=== PATIENT | male | born 1990 | race African-American/Black ===

== ENCOUNTER 2017-11-17 10:25 | Emergency (ER) | payer OTHER ==
[~2017-11-17] VITALS: Ht 172.7 cm; Wt 68.0 kg
[~2017-11-17 10:25] MED LIST: BACTRIM DS TAB1 EACH PO; BENADRYL25 MG PO; IBUPROFEN400 MG PO; IBUPROFEN800 MG PO; KEFLEX500 MG PO; PREDNISONE20 MG PO; SUDAFED PO; TRAMADOL HCL50 MG PO; ULTRAM50 MG PO; VICODIN 5-5001 EACH PO
[2017-11-17] MEDS ORDERED: NAPROSYN500 MG PO (12:20)
== END 2017-11-17 12:32 | disposition home or self-care (01) ==
LOC: ED 10:25
DX: R10.11 Right upper quadrant pain (principal); F17.200 Nicotine dependence, unspecified, uncomplicated
CPT/HCPCS: 76705; 80053; 81001; 83690; 85025; 96374; 96375; 99284; J1885; J2405; J7030

== ENCOUNTER 2017-11-24 09:55 | Emergency (ER) | payer OTHER ==
[~2017-11-24] VITALS: Ht 172.7 cm; Wt 68.0 kg
[~2017-11-24 09:55] MED LIST changes: +NAPROSYN500 MG PO
== END 2017-11-24 12:15 | disposition short-term general hospital (02) ==
LOC: ED 09:55
DX: I62.9 Nontraumatic intracranial hemorrhage, unspecified (principal); F17.200 Nicotine dependence, unspecified, uncomplicated
CPT/HCPCS: 70450; 80053; 85025; 85610; 85730; 96374; 96375; 99291; J1170; J2405; J3010

== ENCOUNTER 2020-07-21 16:35 | Emergency (ER) | payer OTHER ==
[~2020-07-21] VITALS: Ht 172.7 cm; Wt 63.5 kg
[2020-07-21] MEDS ORDERED: KEFLEX500 MG PO (17:41)
== END 2020-07-21 17:51 | disposition home or self-care (01) ==
LOC: ED 16:35
DX: M65.88 Other synovitis and tenosynovitis, other site (principal); F17.200 Nicotine dependence, unspecified, uncomplicated
CPT/HCPCS: 99283

== ENCOUNTER 2021-06-14 17:34 | Emergency (ER) | payer OTHER ==
[~2021-06-14] VITALS: Ht 172.7 cm; Wt 63.5 kg
--- NOTE | 2021-06-14 19:19 | EKG ---
[facility] [address] [facility] [place], [place] [address] Signed Normal sinus rhythm Normal ECG No previous ECGs available Confirmed by EMERY LEE DO ([id number]) on 06/14/2021 7:19:27 PM Electronically Signed By: EMERY LEE DO 06/14/211918 PATIENT NAME: MURRAY WALKER Electrocardiogram DATE OF : 86 PHYSICIAN: EMERY LEE DO REPORT #: [id number] REPORT IS CONFIDENTIAL AND NOT TO BE RELEASED WITHOUT AUTHORIZATION
[2021-06-14] MEDS ORDERED: NASAL DECONGEST30 MG PO (19:28)
[2021-06-14] MEDS ORDERED: MECLIZINE HCL25 MG PO (19:28)
== END 2021-06-14 20:06 | disposition home or self-care (01) ==
LOC: ED 17:34
DX: H83.02 Labyrinthitis, left ear (principal); R07.89 Other chest pain; F17.200 Nicotine dependence, unspecified, uncomplicated; Z86.73 Personal history of transient ischemic attack (TIA), and cerebral infarction without residual deficits
CPT/HCPCS: 70450; 71045; 80053; 83690; 83735; 84484; 85025; 93005; 93010; 96374; 99285-25; A9270; J1100

== ENCOUNTER 2022-04-23 17:53 | Emergency (ER) | payer OTHER ==
[~2022-04-23] VITALS: Ht 172.7 cm; Wt 62.6 kg
[~2022-04-23 17:53] MED LIST changes: +MECLIZINE HCL25 MG PO; +NASAL DECONGEST30 MG PO
== END 2022-04-23 20:05 | disposition home or self-care (01) ==
LOC: ED 17:53
DX: G89.29 Other chronic pain (principal); M25.521 Pain in right elbow; F17.200 Nicotine dependence, unspecified, uncomplicated; Z79.899 Other long term (current) drug therapy
CPT/HCPCS: 99283

== ENCOUNTER 2023-05-18 17:23 | Emergency (ER) | payer OTHER ==
[~2023-05-18] VITALS: Ht 172.7 cm; Wt 65.5 kg
[2023-05-19 00:50] VITALS: BP 158/99
== END 2023-05-19 00:51 | disposition home or self-care (01) ==
LOC: ED 17:23
DX: M79.672 Pain in left foot (principal); G89.29 Other chronic pain; F17.200 Nicotine dependence, unspecified, uncomplicated; Z86.73 Personal history of transient ischemic attack (TIA), and cerebral infarction without residual deficits
CPT/HCPCS: 73630; 99283-25